=== PATIENT | male | born 1930 | race Caucasian/White ===

== ENCOUNTER 2016-08-26 10:38 | Outpatient (CLI) | payer MEDICARE, BC | END 2016-08-26 10:39 | disposition home or self-care (01) | DX: I48.91 Unspecified atrial fibrillation (principal); Z79.01 Long term (current) use of anticoagulants ==

== ENCOUNTER 2016-10-07 10:27 | Outpatient (CLI) | payer MEDICARE, BC | END 2016-10-07 10:28 | disposition home or self-care (01) | DX: I48.91 Unspecified atrial fibrillation (principal); Z79.01 Long term (current) use of anticoagulants ==

== ENCOUNTER 2016-10-21 08:00 | Outpatient (CLI) | payer MEDICARE, BC | END 2016-10-21 08:01 | disposition home or self-care (01) | DX: I48.91 Unspecified atrial fibrillation (principal); Z79.01 Long term (current) use of anticoagulants ==

== ENCOUNTER 2016-11-04 10:11 | Outpatient (CLI) | payer MEDICARE, BC | END 2016-11-04 10:12 | disposition home or self-care (01) | DX: I48.91 Unspecified atrial fibrillation (principal); Z79.01 Long term (current) use of anticoagulants ==

== ENCOUNTER 2016-11-25 10:04 | Outpatient (CLI) | payer MEDICARE, BC | END 2016-11-25 10:05 | disposition home or self-care (01) | DX: I48.91 Unspecified atrial fibrillation (principal); Z79.01 Long term (current) use of anticoagulants ==

== ENCOUNTER 2016-12-30 10:32 | Outpatient (CLI) | payer MEDICARE, BC | END 2016-12-30 10:33 | disposition home or self-care (01) | LOC: LAB.F 10:32 | PROVIDERS: ATTEND Internal Medicine | DX: I48.91 Unspecified atrial fibrillation (principal); Z79.01 Long term (current) use of anticoagulants | CPT/HCPCS: 85610 ==

== ENCOUNTER 2017-02-03 10:40 | Outpatient (CLI) | payer MEDICARE, BC | END 2017-02-03 10:41 | disposition home or self-care (01) | LOC: LAB.F 10:40 | PROVIDERS: ATTEND Internal Medicine | DX: I48.91 Unspecified atrial fibrillation (principal); Z79.01 Long term (current) use of anticoagulants | CPT/HCPCS: 85610 ==

== ENCOUNTER 2017-05-12 11:08 | Outpatient (CLI) | payer MEDICARE, BC | END 2017-05-12 11:09 | disposition home or self-care (01) | LOC: LAB.F 11:08 | PROVIDERS: ATTEND Internal Medicine | DX: I48.91 Unspecified atrial fibrillation (principal); Z79.01 Long term (current) use of anticoagulants | CPT/HCPCS: 85610 ==

== ENCOUNTER 2017-05-24 08:00 | Outpatient (CLI) | payer MEDICARE, BC | END 2017-05-24 08:01 | disposition home or self-care (01) | LOC: LAB.F 08:00 | PROVIDERS: ATTEND Internal Medicine | DX: I48.91 Unspecified atrial fibrillation (principal); Z79.01 Long term (current) use of anticoagulants | CPT/HCPCS: 85610 ==

== ENCOUNTER 2017-05-24 14:40 | Outpatient (CLI) | payer MEDICARE, BC ==
[2017-05-24 18:11] LABS: CALCIUM 9.4 mg/dL (8.5-10.3); CREATININE 1.3 mg/dL (0.6-1.2); POTASSIUM 3.8 mmol/L (3.5-5.0)
== END 2017-05-24 14:41 | disposition home or self-care (01) ==
LOC: LAB.F 14:40
PROVIDERS: ATTEND Internal Medicine Cardiovascular Disease
DX: R06.00 Dyspnea, unspecified (principal); I48.91 Unspecified atrial fibrillation; Z79.01 Long term (current) use of anticoagulants
CPT/HCPCS: 36415; 80048; 83880; 83930; 85610

== ENCOUNTER 2017-06-15 15:31 | Outpatient (CLI) | payer MEDICARE, BC ==
--- NOTE | 2017-06-15 19:05 | XRAY Report ---
TWO VIEW CHEST: 06/15/2017 CLINICAL INDICATION: Cough, shortness of breath, history of CHF and recent pneumonia. COMPARISON: 07/06/2015 Frontal and lateral views of the chest demonstrate a mildly enlarged cardiac silhouette. There has b een interval insertion of a left subclavian AICD/pacemaker. The lungs demonstrate increased intersti tial opacities bilaterally, compatible with congestive failure. Trace effusions are present. No pne umothorax is seen. IMPRESSION: CARDIOMEGALY AND INTERSTITIAL EDEMA, COMPATIBLE WITH CONGESTIVE FAILURE. JOB #: [id number] EXT JOB #:[id number]
== END 2017-06-15 15:32 | disposition home or self-care (01) ==
LOC: DI 15:31
PROVIDERS: ATTEND Internal Medicine Cardiovascular Disease
DX: I50.30 Unspecified diastolic (congestive) heart failure (principal)
CPT/HCPCS: 71020

== ENCOUNTER 2017-06-16 10:18 | Outpatient (CLI) | payer MEDICARE, BC | END 2017-06-16 10:19 | disposition home or self-care (01) | LOC: LAB.F 10:18 | PROVIDERS: ATTEND Internal Medicine | DX: I48.91 Unspecified atrial fibrillation (principal); Z79.01 Long term (current) use of anticoagulants | CPT/HCPCS: 85610 ==

== ENCOUNTER 2017-06-20 14:21 | Outpatient (CLI) | payer MEDICARE, BC ==
[2017-06-20 17:54] LABS: CALCIUM 9.1 mg/dL (8.5-10.3); POTASSIUM 3.8 mmol/L (3.5-5.0)
== END 2017-06-20 14:22 | disposition home or self-care (01) ==
LOC: LAB.F 14:21
PROVIDERS: ATTEND Internal Medicine Cardiovascular Disease
DX: I50.30 Unspecified diastolic (congestive) heart failure (principal); I34.0 Nonrheumatic mitral (valve) insufficiency; I27.20 Pulmonary hypertension, unspecified; R06.00 Dyspnea, unspecified
CPT/HCPCS: 36415; 80048; 83880; 83930

== ENCOUNTER 2017-06-28 08:00 | Outpatient (CLI) | payer MEDICARE, BC | END 2017-06-28 08:01 | disposition home or self-care (01) | LOC: LAB.F 08:00 | PROVIDERS: ATTEND Internal Medicine | DX: I48.91 Unspecified atrial fibrillation (principal); Z79.01 Long term (current) use of anticoagulants | CPT/HCPCS: 85610 ==

== ENCOUNTER 2017-07-14 10:05 | Outpatient (CLI) | payer MEDICARE, BC | END 2017-07-14 10:06 | disposition home or self-care (01) | LOC: LAB.F 10:05 | PROVIDERS: ATTEND Internal Medicine | DX: I48.91 Unspecified atrial fibrillation (principal); Z79.01 Long term (current) use of anticoagulants | CPT/HCPCS: 85610 ==

== ENCOUNTER 2017-07-17 13:16 | Outpatient (CLI) | payer MEDICARE, BC | END 2017-07-17 13:17 | disposition home or self-care (01) | LOC: LAB.F 13:16 | PROVIDERS: ATTEND Internal Medicine | DX: I48.91 Unspecified atrial fibrillation (principal); Z79.01 Long term (current) use of anticoagulants | CPT/HCPCS: 85610 ==

== ENCOUNTER 2017-07-28 10:38 | Outpatient (CLI) | payer MEDICARE, BC | END 2017-07-28 10:39 | disposition home or self-care (01) | LOC: LAB.F 10:38 | PROVIDERS: ATTEND Internal Medicine | DX: I48.91 Unspecified atrial fibrillation (principal) | CPT/HCPCS: 85610 ==

== ENCOUNTER 2017-08-04 10:23 | Outpatient (CLI) | payer MEDICARE, BC | END 2017-08-04 10:24 | disposition home or self-care (01) | LOC: LAB.F 10:23 | PROVIDERS: ATTEND Internal Medicine | DX: I48.91 Unspecified atrial fibrillation (principal) | CPT/HCPCS: 85610 ==

== ENCOUNTER 2017-09-01 10:50 | Outpatient (CLI) | payer MEDICARE, BC | END 2017-09-01 10:51 | disposition home or self-care (01) | LOC: LAB.F 10:50 | PROVIDERS: ATTEND Internal Medicine | DX: I48.91 Unspecified atrial fibrillation (principal) | CPT/HCPCS: 85610 ==

== ENCOUNTER 2017-10-06 10:26 | Outpatient (CLI) | payer MEDICARE, BC | END 2017-10-06 10:27 | disposition home or self-care (01) | LOC: LAB.F 10:26 | PROVIDERS: ATTEND Internal Medicine | DX: I48.91 Unspecified atrial fibrillation (principal) | CPT/HCPCS: 85610 ==

== ENCOUNTER 2017-10-20 10:05 | Outpatient (CLI) | payer MEDICARE, BC | END 2017-10-20 10:06 | disposition home or self-care (01) | LOC: LAB.F 10:05 | PROVIDERS: ATTEND Internal Medicine | DX: I48.91 Unspecified atrial fibrillation (principal) | CPT/HCPCS: 85610 ==

== ENCOUNTER 2017-11-10 10:37 | Outpatient (CLI) | payer MEDICARE, BC | END 2017-11-10 10:38 | disposition home or self-care (01) | LOC: LAB.F 10:37 | PROVIDERS: ATTEND Internal Medicine | DX: I48.91 Unspecified atrial fibrillation (principal) | CPT/HCPCS: 85610 ==

== ENCOUNTER 2017-11-17 10:22 | Outpatient (CLI) | payer MEDICARE, BC | END 2017-11-17 10:23 | disposition home or self-care (01) | LOC: LAB.F 10:22 | PROVIDERS: ATTEND Internal Medicine | DX: I48.91 Unspecified atrial fibrillation (principal) | CPT/HCPCS: 85610 ==

== ENCOUNTER 2017-12-08 10:39 | Outpatient (CLI) | payer MEDICARE, BC | END 2017-12-08 10:40 | disposition home or self-care (01) | LOC: LAB.F 10:39 | PROVIDERS: ATTEND Internal Medicine | DX: I48.91 Unspecified atrial fibrillation (principal) | CPT/HCPCS: 85610 ==

== ENCOUNTER 2017-12-15 10:26 | Outpatient (CLI) | payer MEDICARE, BC | END 2017-12-15 10:27 | disposition home or self-care (01) | LOC: LAB.F 10:26 | PROVIDERS: ATTEND Internal Medicine | DX: I48.91 Unspecified atrial fibrillation (principal) | CPT/HCPCS: 85610 ==

== ENCOUNTER 2018-01-05 10:37 | Outpatient (CLI) | payer MEDICARE, BC | END 2018-01-05 10:38 | disposition home or self-care (01) | LOC: LAB.F 10:37 | PROVIDERS: ATTEND Internal Medicine | DX: I48.91 Unspecified atrial fibrillation (principal) | CPT/HCPCS: 85610 ==

== ENCOUNTER 2018-01-12 10:17 | Outpatient (CLI) | payer MEDICARE, BC | END 2018-01-12 10:18 | disposition home or self-care (01) | LOC: LAB.F 10:17 | PROVIDERS: ATTEND Internal Medicine | DX: I48.91 Unspecified atrial fibrillation (principal) | CPT/HCPCS: 85610 ==

== ENCOUNTER 2018-02-02 10:51 | Outpatient (CLI) | payer MEDICARE, BC | END 2018-02-02 10:52 | disposition home or self-care (01) | LOC: LAB.F 10:51 | PROVIDERS: ATTEND Internal Medicine | DX: I48.91 Unspecified atrial fibrillation (principal) | CPT/HCPCS: 85610 ==

== ENCOUNTER 2018-02-27 14:26 | Outpatient (CLI) | payer MEDICARE, BC | END 2018-02-27 14:27 | disposition home or self-care (01) | LOC: LAB.F 14:26 | PROVIDERS: ATTEND Internal Medicine | DX: I48.91 Unspecified atrial fibrillation (principal) | CPT/HCPCS: 85610 ==

== ENCOUNTER 2018-03-29 11:00 | Outpatient (CLI) | payer MEDICARE, BC ==
[2018-03-29 17:50] LABS: CALCIUM 9.2 mg/dL (8.5-10.3); CREATININE 0.7 mg/dL (0.6-1.2)
== END 2018-03-29 11:01 | disposition home or self-care (01) ==
LOC: LAB.F 11:00
PROVIDERS: ATTEND Registered Nurse
DX: I48.91 Unspecified atrial fibrillation (principal)
CPT/HCPCS: 36415; 80048; 85610

== ENCOUNTER 2018-04-20 13:35 | Outpatient (CLI) | payer MEDICARE, BC | END 2018-04-20 13:36 | disposition short-term general hospital (02) | LOC: EMS 13:35 | PROVIDERS: ATTEND Surgery | DX: R06.00 Dyspnea, unspecified (principal) | CPT/HCPCS: A0170; A0425; A0429 ==

== ENCOUNTER 2018-04-26 11:50 | Outpatient (CLI) | payer MEDICARE, BC ==
[2018-04-26 17:25] LABS: BASOPHILS # (AUTO) 0.1 10^3/uL (0.0-0.1); BASOPHILS % (AUTO) 0.6 %; EOSINOPHILS # (AUTO) 0.3 10^3/uL (0.0-0.7); EOSINOPHILS % (AUTO) 2.8 %; HGB - HEMOGLOBIN 14.2 g/dL (14.0-18.0); LYMPHOCYTES # (AUTO) 1.1 10^3/uL (1.5-3.5); LYMPHOCYTES % (AUTO) 11.8 %; MEAN CORPUSCULAR HEMOGLOBIN 32.4 pg (27.0-31.0); MEAN CORPUSCULAR HGB CONC 33.8 g/dL (32.0-36.0); MEAN CORPUSCULAR VOLUME 95.8 fL (80.0-94.0); MEAN PLATELET VOLUME 9.4 fL (7.4-11.4); MONOCYTES # (AUTO) 0.9 10^3/uL (0.0-1.0); NEUTROPHILS # (AUTO) 7.2 10^3/uL (1.5-6.6); NEUTROPHILS % (AUTO) 75.8 %; PLT - PLATELET COUNT 204 10^3/uL (130-450); RED BLOOD COUNT 4.37 10^6/uL (4.70-6.10); RED CELL DISTRIBUTION WIDTH 13.5 % (12.0-15.0); WHITE BLOOD COUNT 9.5 x10^3/uL (4.8-10.8)
[2018-04-26 17:44] LABS: CALCIUM 9.2 mg/dL (8.5-10.3); CREATININE 0.6 mg/dL (0.6-1.2)
== END 2018-04-26 11:51 | disposition home or self-care (01) ==
LOC: LAB.R 11:50
PROVIDERS: ATTEND Internal Medicine Cardiovascular Disease
DX: I48.91 Unspecified atrial fibrillation (principal); I50.23 Acute on chronic systolic (congestive) heart failure
CPT/HCPCS: 80048; 85025

== ENCOUNTER 2018-05-11 16:05 | Outpatient (CLI) | payer MEDICARE, BC ==
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
== END 2018-05-11 16:06 | disposition home or self-care (01) ==
LOC: PC 16:05
PROVIDERS: ATTEND Nurse Practitioner Adult Health
DX: Z51.5 Encounter for palliative care (principal); J84.112 Idiopathic pulmonary fibrosis; Z99.81 Dependence on supplemental oxygen; R64 Cachexia; I50.9 Heart failure, unspecified; I48.91 Unspecified atrial fibrillation; E11.9 Type 2 diabetes mellitus without complications; Z95.0 Presence of cardiac pacemaker; Z95.2 Presence of prosthetic heart valve; Z87.891 Personal history of nicotine dependence; Z79.01 Long term (current) use of anticoagulants; F41.9 Anxiety disorder, unspecified; F32.9 Major depressive disorder, single episode, unspecified; Z66 Do not resuscitate
CPT/HCPCS: 99345

== ENCOUNTER 2018-05-29 15:15 | Outpatient (CLI) | payer MEDICARE, BC ==
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
== END 2018-05-29 15:16 | disposition home or self-care (01) ==
LOC: PC 15:15
PROVIDERS: ATTEND Nurse Practitioner Adult Health
DX: Z51.5 Encounter for palliative care (principal); J84.112 Idiopathic pulmonary fibrosis; R64 Cachexia; R13.10 Dysphagia, unspecified; I50.20 Unspecified systolic (congestive) heart failure; R68.81 Early satiety; F41.9 Anxiety disorder, unspecified; E11.9 Type 2 diabetes mellitus without complications; Z79.01 Long term (current) use of anticoagulants; Z99.81 Dependence on supplemental oxygen; R06.01 Orthopnea; Z66 Do not resuscitate
CPT/HCPCS: 99350

== ENCOUNTER 2018-07-13 10:36 | Outpatient (CLI) | payer MEDICARE, BC | END 2018-07-13 10:37 | disposition home or self-care (01) | LOC: LAB.F 10:36 | PROVIDERS: ATTEND Internal Medicine | DX: I48.91 Unspecified atrial fibrillation (principal) | CPT/HCPCS: 85610 ==

== ENCOUNTER 2018-07-17 15:40 | Outpatient (CLI) | payer MEDICARE, BC ==
--- NOTE | 2018-07-17 21:25 | CONSULTATION NOTE ---
Palliative Care Follow Up - Referral Referring Provider: Dr. Jamin Mark Time of Visit: [id number] Referral setting: Home (It is a taxing considerable effort for the patient leave the home home visit also to facilitate family conference and problem solving regarding skin issues.) Referral Reason: Pulmonary Fibrosis/CHF - Information Sources Records reviewed: Previous records reviewed History/Review of Systems obtained from: Patient, Family ( Miguelangel and daughter Paula present for vis) Exam limitations: No limitations - History of Present Illness Update Brief HPI Update: This is a franco 88-year-old gentleman who has worsening idiopathic pulmonary fibrosis. He has chronic heart failure, currently controlled, but with known decreased ejection fraction of 30-35%. He does have an AICD recently turned off with his most recent hospitalization. His shortness of breath is quite limiting, he is most comfortable at rest. He has so increase his activity tolerance to be able to ambulate down the diaz and to the bathroom several times a day, has ventured out to dinner, and able to get to physician's office for ongoing protimes. He has used the morphine, finding 5 mg more effective, uses this mostly at bedtime which assist with his cough and shortness of breath, has used it occasionally with good results were planning of activities. Reports no side effects of sedation, confusion, or nausea, and needs encouragement to use it. He does have intermittent anxiety, has used Valium 2.5 mg with good result s, usually 1-2 times a week, though does admit morphine is more effective as far as his respiratory distress which triggers his anxiety. He has remained weight neutral at 130. Patient continues to struggle with pressure/rash issues in perirectal and coccyx area. Patient is not incontinent, had been instructed to stop the Desitin as it was too drying. Was to trial triamcinolone for 2 weeks, in the meantime had seen another provider, and had been layering Desitin on top of the triamcinolone. Now patient presents with candidiasis with satellite lesions. Patient does have some stage I pressure points on his coccyx, but no partial thickness pressure wounds noted. Patient does sleep in the recliner, and is on no pressure relief cushion because "it is too uncomfortable". Patient's past medical history includes congestive heart failure, hypertension, coronary artery disease, [place], atrial fibrillation and valve disorder on Coumadin, nonischemic cardiomyopathy, pulmonary hypertension severe, [place] fibrosis idiopathic, tremors, type 2 diabetes, history of colon cancer x2, benign prostate hypertrophy, chronic vision loss, chronic hearing loss, depression, anxiety, panic attacks. Patient does have a mitral "clip" as well as pacemaker. Social History - Living Situation Living arrangement: At home Living Situation: With spouse/s.o. Support System: with some memory issues, but his primary caregiver, is getting some respite relief from daughters. is very engaged and community oriented, this is been quite a change for her, but has not been excepting are wanting to hire further assistance. Paula who is the D POA, is present for visit today, their other daughter does come on a regular basis Monday so can get out. has taken on bathing, they are getting "better at managing it". Medications/Allergies - Medications Home Medications: Ambulatory Orders Medication Instructions Recorded Confirmed Saw [place] 160 mg PO DAILY 12/10/12 07/19/18 Triamterene/Hdyrochlor 37.5/25 1 each PO DAILY 12/10/12 07/19/18 [Dyazide] Warfarin Sodium [Coumadin] 5 mg PO DAILY MDD titrated by MD 12/10/12 07/19/18 Ipratropium/Albuterol [Duoneb] 1 amp INH Q4HR PRN 05/13/18 07/19/18 L.acid/L.casei/B.bif/B.clyde/Fos 1 cap PO DAILY 05/13/18 07/19/18 [Probiotic Blend Capsule] Magnesium Oxide [Magnesium] 500 - 1,000 mg PO DAILY PRN 05/13/18 07/19/18 Nitroglycerin [Nitrostat] 0.4 mg SL Q5MIN PRN MDD 3 05/13/18 07/19/18 Spironolactone 25 mg PO DAILY 05/13/18 07/19/18 diazePAM [Diazepam] 2.5 mg PO DAILY PRN 05/13/18 07/19/18 Morphine Sulfate [Morphine Sulf 5 mg PO .Q2 PRN 05/29/18 07/19/18 Oral (Roxanol)] - Allergies Allergies/Adverse Reactions: Allergies Allergy/AdvReac Type Severity Reaction Status Date / Time doxazosin mesylate * Allergy Itching Verified 12/10/12 11:43 [From Cardura] iohexol Allergy Unknown Verified 05/13/18 14:29 red dye Allergy Unknown Verified 05/13/18 14:30 sacubitril [From Entresto] Allergy Unknown Verified 05/13/18 14:30 valsartan [From Entresto] Allergy Unknown Verified 05/13/18 14:30 Review of Systems - Constitutional Constitutional: reports: Fatigue, Weight stable. denies: Fever, Chills - Eyes Eyes: reports: Vision loss - Ears, Nose & Throat Ears, Nose & Throat: reports: Hearing loss, Dry mouth - Cardiovascular Cardiovascular: reports: Exertional dyspnea, Decr. exercise tolerance, Orthopnea. denies: Edema - Respiratory Respiratory: reports: Cough (nonproductive; lessening in frequency), Orthopnea, SOB at rest, SOB with exertion, Other (using nebulizer BID) - Gastrointestinal Gastrointestinal: reports: Early satiety. denies: Constipation, Nausea - Genitourinary Genitourinary: reports: Frequency - Musculoskeletal Musculoskeletal: reports: Stiffness, Muscle weakness, Assistive devices (uses walker; Does have temperature Jose bed, refuses to sleep in it despite skin issues. Underlying barrier is dog is not allowed to sleep in the bedroom, and is his lime kiln tender.) - Integumentary Integumentary: reports: Rash, Dryness - Neurological Neurological: reports: General weakness - Psychiatric Psychiatric: reports: Anxiety - Hematologic/Lymphatic Hematologic/Lymphatic: denies: Recurrent infections - All Other Systems All Other Systems: reports: Reviewed and negative Physical Exam - Vital Signs O2 Saturation: 95 (on 2 liters) - Physical Exam General Appearance: positive: No acute distress Eyes Bilateral: positive: Normal inspection ENT: positive: No signs of dehydration Neck: positive: No JVD, Trachea midline Cardiovascular: positive: Irregular Respiratory: positive: Diminished throughout. negative: Wheezes, Rales, Rhonchi Abdomen: positive: Non-tender, Soft, Nml bowel sounds Skin: positive: Rash (dried scatter scales/satellite lesions of candidiasis particularly right ischiem into scrotal area; denies pain), Pressure wound (stage I coccyx/3 x 4 cm) Extremities: positive: No pedal edema Neurologic/Psychiatric: positive: Oriented x3, Mood/affect nml Palliative Care - POLST Patient has POLST: Yes POLST Status: DNR, Comfort Measures Pain: No pain Tiredness/Fatigue: Moderate (4-6) Drowsiness/Sedation: Moderate (4-6) Nausea: None Depression: Mild (1-3) Anxiety: Moderate (4-6) Dyspnea: Severe (7-10) Anorexia: Mild (1-3) Sleep: Sleep improved Constipation: No Feelings of wellbeing/Perceived Quality of Life: Good, Acceptable, Improved - Palliative Care Discussion: Patient is doing somewhat better, is encouraged. There is quite limited in his activity and remains quite anxious about what the future will bring. shared she is just thankful for every day that she wakes up and he is still with her, recognizing the fragility of the situation. At this point in time patient and family feel like they are coping adequately, that he has plateaued though frail, do not see reason at this point in time to transition to hospice. Patient would meet hospice criteria given his level of respiratory compromise, goals of care, and prognosis but will continue with palliative care for now until symptom burden becomes more problematic and/or benefit from more robust/depth of team. Patient remains quite hopeful for an extended quantity of life but is quite adamant about avoiding hospitalization. DPOA daughter Paula Rowland [phone], requested document for HIM. Impression and Recommendations - Palliative Care Impression: This is a franco 88-year-old gentleman who has multiple comorbidities, most prevalent and limiting his his idiopathic pulmonary fibrosis and underlying CHF. Currently his heart failure is controlled, but he is most limited by his dyspnea from his pulmonary fibrosis. Palliative care providing support for pain and symptom management and transition to hospice when appropriate Recommendations/Counseling Done: 1. Dyspnea. This is multifactorial in origin, mostly related to his restrictive lung disease. Patient has received benefit from intermittent use of the morphine at 5 mg dosing. Counseling provided and addressed barriers for using, encouraged to use more frequently as patient does find better tolerance of activity, has improved cough at night, has had no untoward side effects. 2. Candidiasis of perirectal area/Stage I decub coccyx. Patient continues with challenges related to his ongoing rash and pressure area. Patient condition for recliner, for pressure relief, has refused to use secondary discomfort, should how to turn around backwards and fits better into space, patient agreed more comfortable. Counseling provided encourage frequent position changes, continue daily walks down the diaz. Instructed at this point in time to discontinue the triamcinolone, has maxed out at 2 weeks, concerned about thinning of fragile skin and now has developed candidiasis. Instructed not to use Desitin, as ary lawler is not incontinent does not need barrier aspect, no open areas. Instructed to use nystatin cream thin layer twice a day to rash areas. Will reevaluate in 2 weeks. 3. Cachexia. Patient is maintaining weight and having 30, has had no further choking, have modified diet with improvement. They are using protein shake, have gone out to dinner, encouraged to continue to maximize caloric intake and goal is no further weight loss. 4. Advanced care planning. BIANCA ST is completed in the home. Goals remain to focus on comfort, avoid hospitalization, at this point in time feels he has adequate support, family aware of fragile condition, will continue revisit on a regular basis for transition to hospice when patient accepting and/or in need of more robust support Time Spent: 60 minutes was given 50 of this done in counseling, daughter Paula joined us for her visit today, anticipatory guidance provided as well as instruction and encouragement on use of morphine for dyspnea, counseling for skin issues as well as problem solving.
== END 2018-07-17 15:41 | disposition home or self-care (01) ==
LOC: PC 15:40
PROVIDERS: ATTEND Nurse Practitioner Adult Health
DX: Z51.5 Encounter for palliative care (principal); R06.00 Dyspnea, unspecified; B37.2 Candidiasis of skin and nail; R64 Cachexia; J84.10 Pulmonary fibrosis, unspecified; I50.9 Heart failure, unspecified; F41.9 Anxiety disorder, unspecified; I48.91 Unspecified atrial fibrillation; Z79.01 Long term (current) use of anticoagulants; Z66 Do not resuscitate
CPT/HCPCS: 99350

== ENCOUNTER 2018-07-20 10:16 | Outpatient (CLI) | payer MEDICARE, BC | END 2018-07-20 10:17 | disposition home or self-care (01) | LOC: LAB.F 10:16 | PROVIDERS: ATTEND Internal Medicine | DX: I48.91 Unspecified atrial fibrillation (principal) | CPT/HCPCS: 85610 ==

== ENCOUNTER 2018-08-01 16:00 | Outpatient (CLI) | payer MEDICARE, BC ==
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
== END 2018-08-01 16:01 | disposition home or self-care (01) ==
LOC: PC 16:00
PROVIDERS: ATTEND Nurse Practitioner Adult Health
DX: Z51.5 Encounter for palliative care (principal); J84.112 Idiopathic pulmonary fibrosis; R06.00 Dyspnea, unspecified; I50.9 Heart failure, unspecified; R13.10 Dysphagia, unspecified; F41.9 Anxiety disorder, unspecified; R35.0 Frequency of micturition; B37.49 Other urogenital candidiasis; E11.9 Type 2 diabetes mellitus without complications; L89.151 Pressure ulcer of sacral region, stage 1; R64 Cachexia; Z66 Do not resuscitate
CPT/HCPCS: 99349

== ENCOUNTER 2018-08-10 11:21 | Outpatient (CLI) | payer MEDICARE, BC ==
[2018-08-10 17:55] LABS: BASOPHILS # (AUTO) 0.1 10^3/uL (0.0-0.1); BASOPHILS % (AUTO) 0.4 %; EOSINOPHILS # (AUTO) 0.1 10^3/uL (0.0-0.7); EOSINOPHILS % (AUTO) 0.9 %; HGB - HEMOGLOBIN 14.4 g/dL (14.0-18.0); LYMPHOCYTES # (AUTO) 0.8 10^3/uL (1.5-3.5); LYMPHOCYTES % (AUTO) 6.1 %; MEAN CORPUSCULAR HEMOGLOBIN 30.4 pg (27.0-31.0); MEAN CORPUSCULAR HGB CONC 32.8 g/dL (32.0-36.0); MEAN CORPUSCULAR VOLUME 92.6 fL (80.0-94.0); MEAN PLATELET VOLUME 9.7 fL (7.4-11.4); MONOCYTES # (AUTO) 0.8 10^3/uL (0.0-1.0); MONOCYTES % (AUTO) 6.1 %; NEUTROPHILS # (AUTO) 11.6 10^3/uL (1.5-6.6); NEUTROPHILS % (AUTO) 86.5 %; PLT - PLATELET COUNT 211 10^3/uL (130-450); RED BLOOD COUNT 4.74 10^6/uL (4.70-6.10); RED CELL DISTRIBUTION WIDTH 13.4 % (12.0-15.0); WHITE BLOOD COUNT 13.4 x10^3/uL (4.8-10.8)
[2018-08-10 20:25] LABS: ALBUMIN 3.4 g/dL (3.2-5.5); ALBUMIN/GLOBULIN RATIO 0.8 (1.0-2.2); BILIRUBIN,TOTAL 1.4 mg/dL (0.2-1.0); CREATININE 0.8 mg/dL (0.6-1.2); TOTAL PROTEIN 7.5 g/dL (6.7-8.2)
== END 2018-08-10 11:22 | disposition home or self-care (01) ==
LOC: LAB.F 11:21
PROVIDERS: ATTEND Internal Medicine
DX: I48.91 Unspecified atrial fibrillation (principal); Z79.899 Other long term (current) drug therapy
CPT/HCPCS: 36415; 80053; 85025; 85610

== ENCOUNTER 2018-08-15 20:02 | Outpatient (CLI) | payer MEDICARE, BC ==
--- NOTE | 2018-08-15 20:46 | CONSULTATION NOTE ---
Palliative Care Follow Up - Referral Referring Provider: Dr. Jamin Mark Time of Visit: [id number] Referral setting: Home (It is a taxing considerable effort for the patient leave the home, home visit also to facilitate family conference and evaluate treatment plan.) Referral Reason: Idiopathic Pulmonary Fibrosis/CHF - Information Sources Records reviewed: Previous records reviewed History/Review of Systems obtained from: Patient, Family ( Miguelangel present for visit) Exam limitations: Clinical condition (patient with some STM issues; anxiety; [place]AKT[place]) - History of Present Illness Update Brief HPI Update: This is a franco 88-year-old gentleman with worsening idiopathic pulmonary fibrosis known onset of new systolic heart failure with cardiomyopathy and ejection fraction of 30-35% with most recent hospitalization in April 2018. Patient is quite limited with his dyspnea and anxiety. He is mostly recliner marisela und, does ambulate short distances down the diaz a couple times a day, but needs frequent rest periods with this. He has continued to have weight loss, weighs in at 125, this is related to anorexia and significant fearfulness of choking, he is currently on a pured diet. He continues to have intermittent coughing jags, difficulty clearing his sputum, but sputum is still white. He denies any fever or chills, continues with fatigue, but has settled in somewhat to his current limitations. Past medical history includes CHF, hypertension, coronary artery disease with a history of [place], atrial fib and valve disorder still on Coumadin, nonischemic cardiomyopathy, severe pulmonary hypertension, idiopathic pulmonary fibrosis, tremors, type 2 diabetes, history of colon cancer x2, BPH, chronic vision loss, chronic hearing loss, depression, anxiety, and panic attacks Today patient presents with not a significant improvement in shortness of breath, does not see a lot of change with the morphine, has been scheduling it 3 times daily at 5 mg dosing. He does feel these work better though for his breathlessness and "panic attacks". He continues with coccyx/perirectal irritation though this is improved. He does see himself as the same as 2 weeks ago, still pretty limited. But has been out a couple times for social events. Social History - Living Situation Living arrangement: At home Living Situation: With spouse/s.o. Support System: continues to be primary caregiver, she does get some respite from her daughter's. She sees this "as her job" currently. She does have some fatigue, but not interested in exploring volunteers or paid assistance. Medications/Allergies - Medications Home Medications: Ambulatory Orders Medication Instructions Recorded Confirmed Saw Talpa 160 mg PO DAILY 12/10/12 08/01/18 Triamterene/Hdyrochlor 37.5/25 1 each PO DAILY 12/10/12 08/01/18 [Dyazide] Warfarin Sodium [Coumadin] 5 mg PO DAILY MDD titrated by MD 12/10/12 08/01/18 Ipratropium/Albuterol [Duoneb] 1 amp INH TID MDD as needed up to 05/13/18 07/19/18 6 x day L.acid/L.casei/B.bif/B.clyde/Fos 1 cap PO DAILY 05/13/18 08/01/18 [Probiotic Blend Capsule] Magnesium Oxide [Magnesium] 500 - 1,000 mg PO DAILY PRN 05/13/18 08/01/18 Nitroglycerin [Nitrostat] 0.4 mg SL Q5MIN PRN MDD 3 05/13/18 08/01/18 Spironolactone 25 mg PO DAILY 05/13/18 08/01/18 diazePAM [Diazepam] 2.5 mg PO DAILY PRN 05/13/18 08/01/18 Morphine Sulfate [Morphine Sulf 5 - 10 mg PO .Q2 PRN 05/29/18 08/01/18 Oral (Roxanol)] - Allergies Allergies/Adverse Reactions: Allergies Allergy/AdvReac Type Severity Reaction Status Date / Time doxazosin mesylate * Allergy Itching Verified 12/10/12 11:43 [From Cardura] iohexol Allergy Unknown Verified 05/13/18 14:29 red dye Allergy Unknown Verified 05/13/18 14:30 sacubitril [From Entresto] Allergy Unknown Verified 05/13/18 14:30 valsartan [From Entresto] Allergy Unknown Verified 05/13/18 14:30 Review of Systems - Constitutional Constitutional: reports: Fatigue, Weakness, Weight loss (125.1). denies: Fever, Chills, Malaise - Eyes Eyes: reports: Vision loss - Ears, Nose & Throat Ears, Nose & Throat: reports: Hearing loss, Hearing aids, Nasal congestion (using sinus rinse), Dry mouth - Cardiovascular Cardiovascular: reports: Irregular heart rate, Exertional dyspnea, Decr. exercise tolerance, Orthopnea. denies: Chest pain, Edema, Lightheadedness - Respiratory Respiratory: reports: Cough (intermittent coughing episodes;), Sputum production (clear to light yellow; can be "thick" better with TID nebulizzer; do have NS "fishes"), Orthopnea, SOB at rest, SOB with exertion. denies: Hemoptysis - Gastrointestinal Gastrointestinal: reports: Early satiety, Other (choking with eating). denies: Constipation, Nausea - Genitourinary Genitourinary: reports: Frequency - Musculoskeletal Musculoskeletal: reports: Stiffness, Muscle weakness, Assistive devices (uses walker) - Integumentary Integumentary: reports: Rash, Dryness - Neurological Neurological: reports: General weakness, Memory problems (mild) - Psychiatric Psychiatric: reports: Anxiety. denies: Depression (does not perceive himself as depressed; though expressing feelings of loss and grief) - Endocrine Endocrine: reports: Diabetes type 2 ( glucose 175 on lab draw) - Hematologic/Lymphatic Hematologic/Lymphatic: denies: Anemia - All Other Systems All Other Systems: reports: Reviewed and negative Physical Exam - Vital Signs Temperature: 96.7 C Pulse Rate: 82 Respiratory Rate: 20 O2 Saturation: 98 (on 2 liter) Blood Pressure: 118/68 - Physical Exam General Appearance: positive: Mild distress (with breathing), Anxious Eyes Bilateral: positive: Normal inspection ENT: positive: No signs of dehydration Neck: positive: No JVD, Trachea midline Cardiovascular: positive: Irregularly irregular Respiratory: positive: Diminished throughout. negative: Wheezes, Rales, Rhonchi Abdomen: positive: Soft, Nml bowel sounds Skin: positive: Pressure wound (patients "rash" of satillite lesions resolved with nystatin; skin currently dry; thinned loose pink skin over sacral/coccyx/buttock area; continues to sit most of the time. Attempting some pressure relief, cushion in chair), Other (LE dryness) Extremities: positive: No pedal edema, Other (upper and lower extremity muscle wasting; patient limited by dyspnea;) Neurologic/Psychiatric: positive: Oriented x3, Mood/affect nml, Weakness Palliative Care - POLST Patient has POLST: Yes POLST Status: DNR, Comfort Measures Pain: Location (mild discomfort over tailbone improved) Tiredness/Fatigue: Severe (7-10) Drowsiness/Sedation: Mild (1-3) Nausea: None Depression: Mild (1-3) Anxiety: Moderate (4-6) Dyspnea: Severe (7-10) Anorexia: Severe (7-10) Sleep: Variable sleep pattern Constipation: Yes, Opoid induced, Managed Feelings of wellbeing/Perceived Quality of Life: Fair, No change Performance Status: Patient continues to decline functionally, unable to ambulate short distances both related to muscle fatigue and dyspnea. does help with bathing once a week. Patient does sit at table for meals. Would put him at a PPS at 50%. - Palliative Care Discussion: Patient's D POAnjel is actually daughter Paula Rowland [phone]. Patient does have a BIANCA ST in place with DNA R and comfort measures Discussion today focused on feeling of vulnerability, patient has out lived most of his friends. Recently celebrated friend's birthday where he was doing well, and he 10 days later. Discussed 's goal is she is working on his 89th birthday libertarian, both admit they are "the last couple", but are feeling prepared. They have done his a bit about 2 months ago when they felt it was more imminent. He is settling into his current sedentary existence, but is venturing out more. Patient without any jewish upbringing and denies spiritual concerns, offered mime artist support for life review, declined. focus on just being present, taking the time they have, very aware of his fragility and some quite surprised that his severe anxiety regarding this. Feels this is somewhat out of his character. Results - Lab Results Lab results reviewed: Yes Lab and Imaging Results: Had added labs to his last INR, patient on multiple medications is doing fairly well sodium 134; potassium 3.9, BUN 22; GFR 91. Patient does have slightly elevated total bili at 1.4. He is not anemic Hct 43.9, RBC 4.74. WBC is elevated at 13.4 But patient's baseline is always from past records slightly up patient with inflammatory process. Patient does not present with any acute signs or symptoms of infection, will continue to monitor. Impression and Recommendations - Palliative Care Impression: This is a franco 88-year-old anxious gentleman with multiple comorbidities, most prevalent and limiting his is progressive idiopathic pulmonary fibrosis. He continues to present with difficulty tolerating activity, dyspnea, dysphagia, and escalating anxiety. Palliative care providing support for pain and symptom management and transition to hospice when patient accepts. Recommendations/Counseling Done: 1. Dyspnea. This is multifactorial in origin, most acutely attributed to his restrictive lung disease. They have trialed using the morphine 5 mg 3 times daily, has not seen much improvement with this. Did discuss counseling regarding how to use it for better able to tolerate activity, may use increased dose up to 10 mg to see if feels further effect, 's perception it does help with his anxiety and panic attacks better than the Valium. 2. Cough. Patient has difficulty bringing up phlegm that often triggers coughing spasms, this is improved with nebulizer up to 3 times a day, patient does have plain normal saline there instructed can use this if needs to thin secretions further. 3. Rash on coccyx,/stage I decub. Candidiasis has resolved, skin remains quite dry and flaky. Counseling provided instruction written to use moisturizing barrier cream for 1 week alternating with triamcinolone secondary to inflammation. Instructed use calmoseptine for any open areas. Counseling provided regarding titrating different ointments and response to patient's ongoing skin issues. Patient has been doing better with pressure relief but still remains high risk for further breakdown. 4. Cachexia. Patient remaining stable at about 125, continues to have high anxiety regarding choking episodes. They have done better with pured food, now having difficulty with pills. Counseling provided regarding using pills and yogurt and puddings to facilitate swallow reflux. Patient continues to be resistant to multiple food choices, counseling again provided on food preparation. Did discuss considering adding mirtazapine for symptoms of anorexia, would also help with mood and sleep. Instructions reviewed, hesitant to add any further medications. She will contact me if you would like a prescription. Information given for her to look up. 5. Advanced care planning. BIANCA ST is completed and home, goals remain to focus on comfort and avoid hospitalization, patient would meet criteria for hospice at this point in time but continues to be quite adverse to transitioning. His goal is to make it to his 89th birthday which is in April. Counseling provided to regarding transition points and hospice support. Counseling provided to patient with acknowledging anxiety and anticipatory guidance regarding end of life. Time Spent: 60 minutes was given 50% of this done in counseling regarding symptom management, opioid use and safety, as well as goals of care and anticipatory guidance.
== END 2018-08-15 20:03 | disposition home or self-care (01) ==
LOC: PC 20:02
PROVIDERS: ATTEND Nurse Practitioner Adult Health
DX: H91.90 Unspecified hearing loss, unspecified ear (principal); J84.112 Idiopathic pulmonary fibrosis; R05 Cough; L89.151 Pressure ulcer of sacral region, stage 1; R63.4 Abnormal weight loss; R09.89 Other specified symptoms and signs involving the circulatory and respiratory systems; I50.20 Unspecified systolic (congestive) heart failure; I42.9 Cardiomyopathy, unspecified; E11.9 Type 2 diabetes mellitus without complications; F41.0 Panic disorder [episodic paroxysmal anxiety]; H91.93 Unspecified hearing loss, bilateral; Z79.891 Long term (current) use of opiate analgesic; Z79.01 Long term (current) use of anticoagulants; Z79.899 Other long term (current) drug therapy; Z51.5 Encounter for palliative care; Z66 Do not resuscitate
CPT/HCPCS: 99350

== ENCOUNTER 2018-08-29 16:00 | Outpatient (CLI) | payer MEDICARE, BC ==
--- NOTE | 2018-08-30 06:32 | CONSULTATION NOTE ---
Palliative Care Follow Up - Referral Referring Provider: Dr. Jamin Mark Time of Visit: [id number] Referral setting: Home Referral Reason: Idiopathic Pulmonary Fibrosis/CHF systolic - Information Sources Records reviewed: Previous records reviewed History/Review of Systems obtained from: Patient, Family ( Miguelangel present for visit) Exam limitations: Clinical condition (patient with high anxiety; some STM issues) - History of Present Illness Update Brief HPI Update: This is a franco 88-year-old gentleman with worsening idiopathic pulmonary fibrosis, known onset of new systolic heart failure with cardiomyopathy and ejection fraction of 30-35% with most recent hospitalization in April 2018. Patient is quite limited with his dyspnea and ongoing escalating anxiety. He is mostly wheelchair bound, ambulate short distances down the diaz a couple times a day, with frequent rest periods. Does have intermittent coughing spells, that cause him much distress, he had one last night which has escalated his anxiety. We did review the series of events leading up to this, as well as the use of the morphine which was effective. He has been having more trouble with swallowing, is currently on a pured diet. He continues with poor appetite, he has had more weight loss with a weight of 123.5 yesterday. Past medical history includes CHF systolic, hypertension, coronary artery disease With a history of [place], atrial fib and valve disorder on warfarin, nonischemic cardiomyopathy, severe pulmonary hypertension, tremors, type 2 diabetes, history of colon cancer x2, BPH, chronic vision loss, chronic hearing loss, depression, anxiety, and panic attacks Patient presents today with some distress over his episode last night, they are using the morphine with effectiveness, he has started using 2.5 of Valium in the evenings as this is when starts escalating with some good results. Is having increased difficulty swallowing pills, is quite focused on his oxygen numbers, Unfortunately his concentrator was not working well, and had to have that replaced over the last few days which increased his anxiety as well. He continues with coccyx/perirectal irritation though this is much improved with rotating use of the ointments. He has been out a couple times for social events and finds is quite enjoyable. He does appear quite frail, and easily overwhelmed with his current situation Social History - Living Situation Living arrangement: At home Living Situation: With spouse/s.o. Support System: He is cared for at home by his Miguelangel, who is quite elderly as well. She does get overwhelmed if there is too much going on, does have some memory issues is that time. She does get respite once a week from her daughter, but continues to decline further assistance. Medications/Allergies - Medications Home Medications: Ambulatory Orders Medication Instructions Recorded Confirmed Triamterene/Hdyrochlor 37.5/25 0.5 each PO DAILY 12/10/12 08/30/18 [Dyazide] Warfarin Sodium [Coumadin] 5 mg PO DAILY MDD titrated by 12/10/12 08/30/18 Ipratropium/Albuterol [Duoneb] 1 amp INH TID MDD as needed up to 05/13/18 08/30/18 6 x day Magnesium Oxide [Magnesium] 500 - 1,000 mg PO DAILY PRN 05/13/18 08/30/18 Nitroglycerin [Nitrostat] 0.4 mg SL Q5MIN PRN MDD 3 05/13/18 08/30/18 Spironolactone 25 mg PO DAILY 05/13/18 08/30/18 diazePAM [Diazepam] 2.5 mg PO TID PRN 05/13/18 08/30/18 Morphine Sulfate [Morphine Sulf 5 - 10 mg PO .Q4 PRN MDD 05/29/18 08/30/18 Oral (Roxanol)] repeat in 15 minutes Guaifenesin [Tussin] 400 mg PO Q4HR PRN 08/30/18 08/30/18 - Allergies Allergies/Adverse Reactions: Allergies Allergy/AdvReac Type Severity Reaction Status Date / Time doxazosin mesylate * Allergy Itching Verified 12/10/12 11:43 [From Cardura] iohexol Allergy Unknown Verified 05/13/18 14:29 red dye Allergy Unknown Verified 05/13/18 14:30 sacubitril [From Entresto] Allergy Unknown Verified 05/13/18 14:30 valsartan [From Entresto] Allergy Unknown Verified 05/13/18 14:30 Review of Systems - Constitutional Constitutional: reports: Fatigue, Poor appetite, Weight loss (123.5). denies: Fever - Eyes Eyes: reports: Vision loss - Ears, Nose & Throat Ears, Nose & Throat: reports: Hearing loss, Hearing aids, Dry mouth - Cardiovascular Cardiovascular: reports: Exertional dyspnea, Decr. exercise tolerance, Orthopnea. denies: Chest pain, Edema - Respiratory Respiratory: reports: Cough (spasms usually triggered by choking), Sputum production, Orthopnea, SOB at rest, SOB with exertion - Gastrointestinal Gastrointestinal: reports: Poor appetite, Early satiety. denies: Constipation (goes every 2-3 days), Nausea - Genitourinary Genitourinary: reports: Frequency - Musculoskeletal Musculoskeletal: reports: Stiffness, Muscle weakness, Assistive devices (uses walker;) - Integumentary Integumentary: reports: Dryness, Other (perirectal rash/pressure wound) - Neurological Neurological: reports: General weakness, Memory problems (forgetfulness) - Psychiatric Psychiatric: reports: Anxiety - Endocrine Endocrine: reports: Diabetes type 2 - Hematologic/Lymphatic Hematologic/Lymphatic: denies: Recurrent infections - All Other Systems All Other Systems: reports: Reviewed and negative Physical Exam - Vital Signs Temperature: 97.1 C Pulse Rate: 86 Respiratory Rate: 20 O2 Saturation: 98 (3 lilters) Blood Pressure: 104/72 (left and right) - Physical Exam General Appearance: positive: No acute distress, Anxious Eyes Bilateral: positive: Normal inspection ENT: positive: Dry mucous membranes Neck: positive: No JVD, Trachea midline Cardiovascular: positive: Regular rate & rhythm Respiratory: positive: Diminished throughout. negative: Wheezes, Rales, Rhonchi Abdomen: positive: Soft, Nml bowel sounds Skin: positive: Pallor, Bruising (upper extremities), Rash (perirectal/scrotal area improved), Pressure wound (thinned with few small raw areas but improved; pink dull across coccyx/sacrum) Extremities: positive: No pedal edema Neurologic/Psychiatric: positive: Oriented x3, Mood/affect nml, Weakness Palliative Care - POLST Patient has POLST: Yes POLST Status: DNR, Comfort Measures Pain: No pain Tiredness/Fatigue: Moderate (4-6) Drowsiness/Sedation: Moderate (4-6) Nausea: None Depression: Mild (1-3) Anxiety: Severe (7-10) Dyspnea: Moderate (4-6) Anorexia: Moderate (4-6), Weight loss Sleep: Sleeps well, Sleep improved Constipation: Yes, Opoid induced, Managed Feelings of wellbeing/Perceived Quality of Life: Fair, Acceptable, No change Performance Status: Patient continues to spend most of the time in the recliner, is doing the assistance with bathing. He is trying to ambulate short distances but this is only a couple times a day. He is weak getting from sitting to standing, and is quite cachectic. I would put his PPS at 50% - Palliative Care Discussion: Patient remains very fearful and with high levels of anxiety regarding his coughing spasms and intermittent choking. Counseling provided regarding challenging some of his catastrophic thinking, he has recovered, the morphine works when he is short of breath, he has been able to clear his secretions. He continues to watch his numbers on his oximeter, counseling provided that circulation also impacts the readings. They is not in any kind of dangerous zone, and that most likely his body would not feel it if he unless he was in the low 80s. His gets quite exasperated with him, as he will perseverate and plan his activities accordingly. Support provided just confirming he is in a vulnerable place, his fears of choking and not being all to breathe at end of life remain steadfast in his thoughts. Patient is DPO a is his daughter Paula Chapmans [phone]. does make the decisions on a day-to-day basis, but defers to her daughter for bigger medical issues. Patient does have a BIANCA ST in place with DNA R and comfort measures Impression and Recommendations - Palliative Care Impression: This is a anxious 88-year-old gentleman with multiple comorbidities, most prevalent and limiting his his progressive idiopathic pulmonary fibrosis. He does present with some hypotension, continued weight loss, activity intolerance, ongoing dyspnea and dysphasia as well as escalating anxiety. Palliative care providing support for pain and symptom management and transition to hospice when patient accepts Recommendations/Counseling Done: 1. Hypotension. Patient's blood pressures have been in a fairly good range in the a.m., he takes it before he takes his medication. His blood pressure today is 104/72 does appear quite dry, with some tenting, urine somewhat darkened. Patient without lower extremity edema, no crackles. Will titrate him down to a half tab of Dyazide to see if this improves. Patient has had weight loss, decreased intake, counseled adjusting medications to patient's current decline. 2. Dyspnea. This is multifactorial in origin, most acutely attributed to his restrictive lung disease. Has been using morphine with fairly good results, using nebulizer 3 times a day, continues to be quite limiting and as source of high anxiety for patient. He does find this last week using 2.5 mg of Valium early in the evening does help from escalating. 3. Cough. Patient is in the past uses Mucinex to thin his secretions, no longer able to take the medication. Reviewed guaifenesin is also antitussin cough syrup, can trial this to see if this helps. He does get dry throat, and triggers coughing spasms as well. 4. Stage II decub. Coccyx and sacral area much improved, patient is quite thin and the skin is pink and stretched, only a few "raw" areas noted. is rotating ointments appropriately, patient is sleeping on side in recliner. 5. Cachexia. Patient has lost another pound and a half, weight at 123.5. Continues to have high anxiety regarding choking, reports early satiety. is working with protein shakes, and adding calories. Patient has done better with pured food, had discussed adding mirtazapine and had written out for her to talk with daughter. She had forgotten. She will let me know, though unfortunately she has no medication coverage and it is quite expensive. 6. Dysphagia. Simplified medication regimen, discontinued all supplements as these are causing high anxiety with little return. Instructed to continue with a pured foods, is not having trouble with water or thin liquids. Did encourage increased fluid intake given patient's symptoms of dehydration 7. Advanced care planning. BIANCA ST is completed and home, goals remain to focus on comfort and avoiding hospitalization. Patient would meet criteria for hospice at this point in time, but remains quite adverse to transitioning. Will reapproach intermittently, counseling provided to regarding transition points and hospice support. They are quite anxious, and patient at high risk for transitioning quickly, will continue every other week visits until transiti on to hospice. Time Spent: 60 minutes with greater than 50% of this done in counseling regarding to patient's high anxiety, depression, review of current treatment plan, ant icipatory guidance provided for and patient.
== END 2018-08-29 16:01 | disposition home or self-care (01) ==
LOC: PC 16:00
PROVIDERS: ATTEND Nurse Practitioner Adult Health
DX: Z51.5 Encounter for palliative care (principal); J84.112 Idiopathic pulmonary fibrosis; I11.0 Hypertensive heart disease with heart failure; I50.20 Unspecified systolic (congestive) heart failure; I25.10 Atherosclerotic heart disease of native coronary artery without angina pectoris; E11.9 Type 2 diabetes mellitus without complications; L89.42 Pressure ulcer of contiguous site of back, buttock and hip, stage 2; I95.9 Hypotension, unspecified; R06.00 Dyspnea, unspecified; R05 Cough; R63.4 Abnormal weight loss; R64 Cachexia; R13.10 Dysphagia, unspecified; I48.91 Unspecified atrial fibrillation; I42.8 Other cardiomyopathies; F32.9 Major depressive disorder, single episode, unspecified; H54.7 Unspecified visual loss; H91.90 Unspecified hearing loss, unspecified ear; F41.0 Panic disorder [episodic paroxysmal anxiety]; R35.0 Frequency of micturition; Z66 Do not resuscitate; I25.2 Old myocardial infarction; Z79.891 Long term (current) use of opiate analgesic; Z79.01 Long term (current) use of anticoagulants
CPT/HCPCS: 99350

== ENCOUNTER 2018-09-12 15:45 | Outpatient (CLI) | payer MEDICARE, BC ==
--- NOTE | 2018-09-12 21:24 | CONSULTATION NOTE ---
Palliative Care Follow Up - Referral Referring Provider: Dr. Jamin Mark Time of Visit: 5610-8944 Referral setting: Home Referral Reason: Pulmonary Fibrosis - Information Sources Records reviewed: RN notes reviewed History/Review of Systems obtained from: Patient, Family ( Miguelangel present for visit) Exam limitations: Clinical condition (high anxiety) - History of Present Illness Update Brief HPI Update: This is a franco 88-year-old gentleman with worsening idiopathic pulmonary fibrosis, Both patient and note ongoing decline as far as activity tolerance and oxygen needs. Patient on 3 L, with any kind of activity his oxygen sats decrease fairly rapidly to 8089%, he has having longer recovery time up to 92%. He continues to try and ambulate short distances to the table for meals, and down the hallway a couple times a day. He finds Himself needing more rest periods, taking long to recover, and gets quite fearful when his oxygen drops down. He does tend to watch the numbers fairly closely. He continues to have intermittent coughing episodes, he had a fairly severe coughing "jags" that lasted 15-20 minutes yesterday, was able to finally bring up some phlegm. has been using morphine, did repeat yesterday with some results, and nebulizer treatment. Patient gets quite anxious and scared during this time, but have not increased in number of episodes. Patient presents with fairly high symptom burden of fatigue, anxiety, depressive symptoms, anorexia, and severe dyspnea. He also continues with weight loss, he has been sitting this last month at 125, but his coccyx is quite thinned and reddened, has intermittent candidiasis because of moisture, he is not incontinent. He does sleep and spend most of his time in the recliner. Patient's past medical history includes CHF systolic, hypertension, coronary artery disease with history of NV, atrial fib and valve disorder on warfarin, n onischemic cardiomyopathy, severe pulmonary hypertension, tremors, type 2 diabetes, history of colon cancer x2, BPH, chronic vision loss, chronic hearing loss, depression, anxiety, and intermittent panic attacks. Social History - Living Situation Living arrangement: At home Living Situation: With spouse/s.o. Support System: He lives with his franco spouse Miguelangel, who is his primary caregiver. She does get respite at least weekly from her daughter, her daughter has agreed to take over finances which is been a huge burden. Patient was no longer able to track, Miguelangel has memory issues as well, and has found this quite supportive. is continue to be resistant to any other kind of paid caregiver support or volunteer, as she wants to spend as much of his limited time with him, and does see it as an honor, though she does admit to getting impatient and overwhelmed at times Medications/Allergies - Medications Home Medications: Ambulatory Orders Medication Instructions Recorded Confirmed Warfarin Sodium [Coumadin] 5 mg PO DAILY MDD titrated by 12/10/12 09/12/18 Ipratropium/Albuterol [Duoneb] 1 amp INH TID MDD as needed up to 05/13/18 09/12/18 6 x day Magnesium Oxide [Magnesium] 500 - 1,000 mg PO DAILY PRN 05/13/18 09/12/18 Nitroglycerin [Nitrostat] 0.4 mg SL Q5MIN PRN MDD 3 05/13/18 09/12/18 Spironolactone 25 mg PO DAILY 05/13/18 09/12/18 diazePAM [Diazepam] 2.5 mg PO TID PRN 05/13/18 09/12/18 Morphine Sulfate [Morphine Sulf 5 - 10 mg PO .Q4 PRN MDD 05/29/18 09/12/18 Oral (Roxanol)] repeat in 15 minutes Guaifenesin [Tussin] 400 mg PO Q4HR PRN 08/30/18 09/12/18 - Allergies Allergies/Adverse Reactions: Allergies Allergy/AdvReac Type Severity Reaction Status Date / Time doxazosin mesylate * Allergy Itching Verified 12/10/12 11:43 [From Cardura] iohexol Allergy Unknown Verified 05/13/18 14:29 red dye Allergy Unknown Verified 05/13/18 14:30 sacubitril [From Entresto] Allergy Unknown Verified 05/13/18 14:30 valsartan [From Entresto] Allergy Unknown Verified 05/13/18 14:30 Review of Systems - Constitutional Constitutional: reports: Fatigue, Poor appetite, Weight stable (125). denies: Fever, Chills - Eyes Eyes: reports: Vision loss - Ears, Nose & Throat Ears, Nose & Throat: reports: Hearing loss, Hearing aids, Hoarseness, Dry mouth, Other (c/o dyphagia on modified puree diet) - Cardiovascular Cardiovascular: reports: Exertional dyspnea, Decr. exercise tolerance, Orthopnea. denies: Chest pain, Edema - Respiratory Respiratory: reports: Cough, Sputum production (occasional), Orthopnea, SOB at rest, SOB with exertion - Gastrointestinal Gastrointestinal: reports: Reflux/heartburn (intermittent; associated at times with MS use/tussien), Early satiety, Other (fearful of choking;) - Musculoskeletal Musculoskeletal: reports: Stiffness, Muscle weakness, Assistive devices (uses walker), Transfer issues (uses wheelchair when out) - Integumentary Integumentary: reports: Rash (coccyx/periarea), Dryness - Neurological Neurological: reports: General weakness, Memory problems. denies: Dizziness - Psychiatric Psychiatric: reports: Depression, Anxiety - Endocrine Endocrine: reports: Diabetes type 2 - All Other Systems All Other Systems: reports: Reviewed and negative Physical Exam - Vital Signs Temperature: 97.4 C Pulse Rate: 88 Respiratory Rate: 20 (24-28 with effort; pursed lip breathing) O2 Saturation: 93 (3 liters at rest; standing with effort 88%; recovery to 93% several minutes) Blood Pressure: 122/80 (b/p logs remain in lower range) - Physical Exam General Appearance: positive: Alert, Mild distress (with breathing), Anxious Eyes Bilateral: positive: Normal inspection ENT: negative: Pharyngeal erythema Neck: positive: No JVD, Trachea midline Cardiovascular: positive: Regular rate & rhythm Respiratory: positive: Diminished throughout (decreased in LLL), Other (respiratory effort with conversation/movement/exam; no cough during visit) Abdomen: positive: Soft Skin: positive: Pallor, Rash (Patient with a dry scaly skin, particularly in the lower extremities, diffuse red rash area, somewhat erythemic in appearance.), Pressure wound (Coccyx area and issues still thickened and red, few scattered light candidiasis lesions, has been using nystatin. Some peeling areas, has switching to moisturizing. Does have a few shallow open areas on his right buttock, calmoseptine applied as barrier. Patient is on pressure relief pillow in his recliner, though does spend most the time in his recliner to including sleeping. Does try to shift from side to side, just very cachectic in appearance. Patient quite resistant to consider hospital bed.) Extremities: positive: Pedal edema (trace in ankles left> right) Neurologic/Psychiatric: positive: Oriented x3, Mood/affect nml, Weakness, Flat affect Palliative Care - POLST Patient has POLST: Yes POLST Status: DNR, Comfort Measures Pain: Location (discomfort on tailbone) Tiredness/Fatigue: Severe (7-10) Drowsiness/Sedation: Mild (1-3) Nausea: None Depression: Moderate (4-6) Anxiety: Severe (7-10) Dyspnea: Severe (7-10) Anorexia: Moderate (4-6) Sleep: Sleeps well Constipation: Yes, Opoid induced, Managed Feelings of wellbeing/Perceived Quality of Life: Fair, Acceptable, Worsening Performance Status: Patient does spend most of his time in the recliner, does try to walk down the diaz a couple times a day, does go to meals. He finds is quite taxing though as far as his dyspnea, needs frequent rest periods, and often waits until oxygen saturation in the higher 90s before will "venture out". They are still trying to go out weekly to meet their friends at the [employer], he does find He does better with the wheelchair if he does not have to press himself. There is a seem to be some tension between the 2 of them Regarding what his capabilities are. She does enjoy bathing him, they do shower together 3 times a week, and just pace themselves. I would put patient at a PPS of 40% - Palliative Care Discussion: When asked patient how he was feeling he was doing, he does report he does feel like things are deteriorating. He does note increased shortness of breath, decreased ability to do things on more time to recover. He reports he is not afraid of dying, he does not want to go to the hospital, but still remains quite anxious regarding the severity of his breathlessness at times. He does feel his does not always understand his distress with breathing, reports it creates some tension between the 2 of them. Counseling provided regarding the complexities of balancing activity and pacing for comfort. Education provided on expected progression of increased shortness of breath, increased recovery time, and changes that happen with pulmonary fibrosis. Reintroduced and recommended hospice support, both have been somewhat resistant. We explained do not need to be homebound, they have enjoyed still trying to get out. Requested they talk to their daughter about it, daughter is D POA and also quite influential on patient and 's decision making. Discussed benefits, hospice benefit, patient open to having the discussion, but will follow up as a family. Discussed is not a if it is just a when, reviewed earlier admission helps them to establish relationship as well. expressing concerns of not wanting to focus on "illness" and worried about patient giving up. Reviewed again the progressive nature of his illness, and often patients actually live longer with tight control of symptoms and attention to detail. Impression and Recommendations - Palliative Care Impression: This is a 88-year-old gentleman with progressive idiopathic pulmonary fibrosis, continues to present as a failure to thrive. With fairly high symptom burden. Patient's dyspnea is progressive, limiting activity tolerance, and causing increased anxiety. Palliative care to continue to provide support, have recommended transition to hospice awaiting patient's and family's decision. Recommendations/Counseling Done: 1. Dyspnea. multifactorial including progressive idiopathic pulmonary fibrosis, deconditioning, And intermittent coughing spasms. Counseling provided and Reviewed the use of morphine, nebulizer, and nonpharmacological approaches as far as energy conservation, pursed lip breathing, encouraged to use plain saline if not time for nebulizzer. 2. Dysphagia. is continuing to pure diet, does take quite a bit of energy for patient to eat. Reports he is "forcing himself to eat, has no appetite. Has had no further choking episodes and currently tolerating smoothies, fluids, and taking frequent sips of water. 3. Hypotension. Blood pressures much improved, patient does appear to still be on the dry side, will go ahead and discontinue the Dyazide and evaluate response. Patient's skin quite dry, no lower extremity edema, other than trace in his ankles suspect related to dependence of LE and poor nutrition. 3. Stage II decub on right buttocks. Patient continues to struggle with pressure relief, and spends most of his time in recliner. rotating between triamcinolone, nystatin, and calmoseptine as well as moisturizing ointments. Patient declines hospital bed, feels most comfortable in recliner and in control. 4. Anxiety. Patient continues to express concern regarding episodic coughing jags, and choking at times. Counseling provided regarding normalizing his fears, reassurance, review of tools available. Discussed role of hospice available 24/7 for support. 5. Advanced care planning. Patient does have a [facility] in place, patient's D POAnjel is actually his daughter Paula Kashif [phone]. His Miguelangel mckeon makes the day-to-day decisions and provides ongoing support for patient. Counseling provided regarding hospice benefit, recommendation to consider transitioning to hospice for increased support as patient is declining. Appointment set with palliative care in 2 weeks, but did review can transition to hospice previous to this appointment. Time Spent: 60 minutes with greater than 50% of this done in counseling regarding symptom management, goals of care, anticipatory guidance, disease progression and recommendation regarding hospice transition
== END 2018-09-12 15:46 | disposition home or self-care (01) ==
LOC: PC 15:45
PROVIDERS: ATTEND Nurse Practitioner Adult Health
DX: Z51.5 Encounter for palliative care (principal); J84.112 Idiopathic pulmonary fibrosis; R13.10 Dysphagia, unspecified; I95.9 Hypotension, unspecified; L89.312 Pressure ulcer of right buttock, stage 2; F41.9 Anxiety disorder, unspecified; R21 Rash and other nonspecific skin eruption; B37.2 Candidiasis of skin and nail; I11.0 Hypertensive heart disease with heart failure; I50.20 Unspecified systolic (congestive) heart failure; E11.9 Type 2 diabetes mellitus without complications; F41.0 Panic disorder [episodic paroxysmal anxiety]; F32.9 Major depressive disorder, single episode, unspecified; Z66 Do not resuscitate; R62.7 Adult failure to thrive; F63.0 Pathological gambling; Z79.01 Long term (current) use of anticoagulants; Z99.81 Dependence on supplemental oxygen
CPT/HCPCS: 99350